=== PATIENT | female | born 1935 | race Caucasian/White ===

== ENCOUNTER 2022-11-10 13:10 | Outpatient (CLI) | payer MEDICARE ==
[~2022-11-10 13:10] MED LIST: Iopamidol 370 76% 100 ML VIAL ONE
== END 2022-11-10 13:11 | disposition home or self-care (01) ==
LOC: CT 13:10
PROVIDERS: ATTEND Internal Medicine Hematology & Oncology
DX: C18.3 Malignant neoplasm of hepatic flexure (principal); F17.210 Nicotine dependence, cigarettes, uncomplicated
CPT/HCPCS: 71260; 74177; 82565